=== PATIENT | female | born 1930 | race Caucasian/White ===

== ENCOUNTER 2017-05-03 05:58 | Inpatient (IN) ==
[2017-04-29 12:13] LABS: Basophils % 0.4 % (0.0-0.8); Eosinophils # 0.1 10*3/uL (0.0-0.87); Eosinophils % 1.3 % (0.00-10.9); Hematocrit 37.1 VOL% (35.7-47.0); Hemoglobin 12.7 GM/DL (12.0-16.0); Immature Granulocytes % 0.4 %; Immature Granulocytes Absolute 0.03 #; Lymphocytes # 2.8 10*3/uL (1.4-4.0); Lymphocytes % 33.7 % (21.3-54.2); Mean Corpuscular HGB Conc 34.2 GM/DL (32-36); Mean Corpuscular Hemoglobin 31 PG (27-34); Mean Corpuscular Volume 90.5 FL (87-102); Monocytes # 0.8 10*3/uL (0.11-0.8); Monocytes % 9.5 % (1.7-12.7); Neutrophils # 4.5 10*3/uL (1.4-7.4); Neutrophils % 54.7 % (38.7-73.9); Platelet Count 229 T/CUMM (130-400); Red Cell Distribution Width 12.6 % (9.3-17.3); White Blood Count 8.2 T/CUMM (4-12)
[2017-04-29 12:25] LABS: PT Patient Result 10.6 SECS; Partial Thromboplastin Time 30.4 SECS (0-40)
[2017-04-29 12:53] LABS: Albumin 4.1 G/DL (3.4-5.0); Bilirubin,Total 0.6 MG/DL (0.2-1.0); Calcium 10.3 MG/DL (8.5-10.1); Osmolality,Calculated 264.5 MOS/KG (273-304); Potassium 4.5 MMOL/L (3.5-5.1); Total Protein 7.5 G/DL (6.4-8.3)
[~2017-05-03 05:58] MED LIST: ceFAZolin 2,000 MG in PREMIX 1 EACH IV ONE
[2017-05-03] MEDS ORDERED: LACTATED RINGERS 1,000 ML IV SCH (06:00)
[2017-05-03] MEDS ORDERED: BUPIVACAINE 0.25% 50 ML VIAL ONE (09:25)
[2017-05-03] MEDS ORDERED: TISSUE ADHESIVE 1 EACH APPLICATOR TOP ONE (09:25)
[2017-05-03] MEDS ORDERED: LIDOCAINE 2%/EPI 20 ML VIAL ONE (09:25)
[2017-05-03] MEDS ORDERED: ACETAMINOPHEN 325 MG TABLET PO PRN (11:27)
[2017-05-03] MEDS ORDERED: MECLIZINE 25 MG TABLET PO PRN (11:37)
[2017-05-03] MEDS: HYDROmorphone 2 MG/1 ML VIAL IV PRN ×6 (11:42→19:42)
[2017-05-03] MEDS ORDERED: ONDANSETRON 4 MG/2 ML VIAL ONE (11:44)
[2017-05-03] MEDS ORDERED: HYDROmorphone 2 MG/1 ML VIAL ONE (11:44)
[2017-05-03] MEDS ORDERED: ONDANSETRON 4 MG/2 ML VIAL IV PRN (11:47)
[2017-05-03] MEDS ORDERED: SEVOFLURANE 1 UNIT/15 MINUTE INH ONE (11:50)
[2017-05-03] MEDS ORDERED: fentaNYL 100 MCG/2 ML VIAL ONE (11:50)
[2017-05-03] MEDS ORDERED: PROPOFOL 200 MG/20 ML VIAL IV ONE (11:50)
[2017-05-03] MEDS ORDERED: SUCCINYLCHOLINE 200 MG/10 ML VIAL ONE (11:51)
[2017-05-03] MEDS ORDERED: LACTATED RINGERS 1,000 ML IV ONE (11:51)
[2017-05-03] MEDS ORDERED: NEOSTIGMINE 10 MG/10 ML VIAL ONE (11:51)
[2017-05-03] MEDS ORDERED: ROCURONIUM 100 MG/10 ML VIAL IV ONE (11:51)
[2017-05-03] MEDS ORDERED: GLYCOPYRROLATE 0.4 MG/2 ML VIAL ONE (11:51)
[2017-05-03] MEDS ORDERED: ePHEDrine 50 MG/ML AMP ONE (11:51)
[2017-05-03] MEDS ORDERED: FERROUS SULFATE 325 MG TABLET PO SCH (12:00)
[2017-05-03] MEDS ORDERED: ROPIVACAINE 0.5% 30 ML VIAL ONE (12:24)
[2017-05-03] MEDS: DEXTROSE 5% NACL 0.45% 1,000 ML IV SCH ×2 (13:59→19:32)
[2017-05-03 17:43] LABS: Hematocrit 38.1 VOL% (35.7-47.0)
[2017-05-03] MEDS: ceFAZolin 2,000 MG in PREMIX 1 EACH IV SCH (18:05)
[2017-05-03] MEDS: ONDANSETRON 4 MG/2 ML VIAL IV PRN (19:42)
[2017-05-03] MEDS ORDERED: ALBUTEROL/IPRATROPIUM 3 ML NEB RESP TX PRN (21:20)
[2017-05-03] MEDS ORDERED: FUROSEMIDE 20 MG/2 ML VIAL IV ONE (21:30)
[2017-05-04] MEDS: ceFAZolin 2,000 MG in PREMIX 1 EACH IV SCH ×3 (01:12→16:36)
[2017-05-04] MEDS: DEXTROSE 5% NACL 0.45% 1,000 ML IV SCH (01:44)
[2017-05-04] MEDS: ENOXAPARIN 30 MG/0.3 ML SYRINGE SUBCUT SCH (05:10)
[2017-05-04 05:14] LABS: Basophils % 0.1 % (0.0-0.8); Eosinophils % 0.1 % (0.00-10.9); Hematocrit 30.7 VOL% (35.7-47.0); Hemoglobin 10.6 GM/DL (12.0-16.0); Immature Granulocytes % 0.4 %; Immature Granulocytes Absolute 0.05 #; Lymphocytes # 1.7 10*3/uL (1.4-4.0); Mean Corpuscular HGB Conc 34.5 GM/DL (32-36); Mean Corpuscular Hemoglobin 31 PG (27-34); Mean Corpuscular Volume 89.5 FL (87-102); Mean Platelet Volume 10.8 FL (9.6-12.0); Monocytes # 1.4 10*3/uL (0.11-0.8); Monocytes % 10.6 % (1.7-12.7); Neutrophils # 10.1 10*3/uL (1.4-7.4); Neutrophils % 75.8 % (38.7-73.9); Platelet Count 204 T/CUMM (130-400); Red Blood Count 3.43 MC/CUMM (3.8-5.5); Red Cell Distribution Width 12.4 % (9.3-17.3); White Blood Count 13.3 T/CUMM (4-12)
[2017-05-04] MEDS: oxyCODONE/ACETAMINOPHEN 5-325 MG TABLET PO PRN ×2 (05:22→15:37)
[2017-05-04 05:47] LABS: Albumin 2.9 G/DL (3.4-5.0); Bilirubin,Total 1.3 MG/DL (0.2-1.0); Calcium 9.3 MG/DL (8.5-10.1); Osmolality,Calculated 256.2 MOS/KG (273-304); Potassium 4.2 MMOL/L (3.5-5.1); Total Protein 5.9 G/DL (6.4-8.3)
[2017-05-04] MEDS: POTASSIUM GLUCONATE 500 MG TABLET PO SCH (08:51)
[2017-05-04] MEDS: VALSARTAN 160 MG TABLET PO SCH (08:51)
[2017-05-04] MEDS: PANTOPRAZOLE 40 MG TABLET PO SCH (08:52)
[2017-05-04] MEDS: amLODIPine 2.5 MG TABLET PO SCH (08:53)
[2017-05-04] MEDS: FUROSEMIDE 20 MG/2 ML VIAL IV SCH (08:56)
[2017-05-04] MEDS: DEXTROSE 5% NACL 0.9% 1,000 ML IV SCH (10:17)
[2017-05-04] MEDS: ONDANSETRON 4 MG/2 ML VIAL IV PRN (19:08)
[2017-05-04] MEDS: HYDROmorphone 2 MG/1 ML VIAL IV PRN (19:08)
[2017-05-05] MEDS: DEXTROSE 5% NACL 0.9% 1,000 ML IV SCH (01:00)
[2017-05-05] MEDS: oxyCODONE/ACETAMINOPHEN 5-325 MG TABLET PO PRN (02:44)
[2017-05-05] MEDS: ENOXAPARIN 30 MG/0.3 ML SYRINGE SUBCUT SCH (04:54)
[2017-05-05] MEDS: POTASSIUM GLUCONATE 500 MG TABLET PO SCH (08:49)
[2017-05-05] MEDS: PANTOPRAZOLE 40 MG TABLET PO SCH (08:49)
[2017-05-05] MEDS: VALSARTAN 160 MG TABLET PO SCH (08:49)
[2017-05-05] MEDS: amLODIPine 2.5 MG TABLET PO SCH (08:49)
[2017-05-05] MEDS: FUROSEMIDE 20 MG/2 ML VIAL IV SCH (08:51)
[2017-05-05 12:54] VITALS: BP 158/52
== END 2017-05-05 14:05 | disposition home or self-care (01) | DRG 418 ==
LOC: N.OR 05:58 → N.SDSINP 06:01 → N.3E 11:27
PROVIDERS: ADMIT Specialist; ATTEND Specialist
PROC: LAPCHOL (2017-05-03 09:55)